=== PATIENT | male | born 1950 | race Caucasian/White ===

== ENCOUNTER 2023-08-12 11:29 | Emergency (ER) | payer OTHER, SELFPAY ==
--- NOTE | ~2023-08-12 | XR_ITS ---
XR ankle LT min 3V 08/12/2023 11:54 Indication: Left ankle pain after fall Procedure: 4 views left ankle Comparison: No prior studies for comparison. Findings: There is a minimally displaced oblique distal fibular fracture. Ankle mortise intact. There are loose bodies adjacent to the medial malleolus, likely related to remote trauma. Prominent degene rative calcaneal enthesophytes. No foreign bodies. 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 Impression: 1: Oblique minimally displaced distal fibular fracture. Reviewed, dictated and finalized at location A. ION LEADER AND MACHINE SETTER Impression: 1: Oblique minimally displaced distal fibular fracture.
--- NOTE | ~2023-08-12 | XR_ITS ---
XR knee RT 3V 08/12/2023 11:54 Indication: Right knee pain after fall Procedure: 4 views right knee Comparison: No prior studies for comparison. Findings: Mild polyarticular osteoarthritis. No joint effusion. No acute fracture or traumatic malali gnment. No significant soft tissue abnormality. No foreign bodies. Impression: 1: No acute fracture. Reviewed, dictated and finalized at location A. RD CHANGER Impression: 1: No acute fracture.
--- NOTE | 2023-08-12 11:33 | ECG_ITS ---
Measurements Intervals [place] Rate: 67 P: -24 GA: 305 QRS: -18 QRSD: 158 T: -16 QT: 417 QTc: 440 Interpretive Statements SINUS RHYTHM WITH FIRST DEGREE AV BLOCK RIGHT BUNDLE BRANCH BLOCK [120+ ms QRS DURATION, UPRIGHT V1, 40+ ms S IN I/aVL/V4/V5/V6] ABNORMAL ECG NO PREVIOUS ECG AVAILABLE FOR COMPARISON Electronically Signed On 08-12-2023 18:26:18 TOXICOLOGIST by Enrique Ngo M.D.
[2023-08-12 11:34] VITALS: BP 138/76; PULSE 73; RESP 20; TEMP 36.3; O2SAT 100
--- NOTE | 2023-08-12 11:35 | ED.GENADULT ---
HPI - General Adult General Chief complaint: Extremity Injury, Lower Stated complaint: fall - knee deformity History of Present Illness HPI narrative: 73-year-old male presenting to the emergency department for evaluation of right knee and left ankle pain after a fall. Patient states he was going down some stairs when his heel caught causing him to slide down the stairs. Patient states he fell down about 3 stairs and when he got to the bottom his legs went behind him and he felt a pop in his right knee. Patient called EMS due to pain in the right knee with deformity and pain in the left ankle. Patient denies striking his head denies any loss of consciousness. Upon arrival emergency department patient initially declined any medications for pain control patient is alert oriented and well-appearing. Patient patient is a type 2 diabetic history of hypertension high cholesterol Related Data Allergies Allergy/AdvReac Type Severity Reaction Status Date / Time No Known Allergies Allergy Verified 02/20/23 10:57 Review of Systems Review of Systems: All systems reviewed & are unremarkable except as noted in HPI and below PMFSH Surgical History Surgical History History of tonsillectomy Family History Family History Grandparent Acute myocardial infarction Hypertension Father Hypertension Mother Hypertension Other Diabetes mellitus Social History Social History Smoking status: Never smoker Second hand tobacco smoke exposure: No Alcohol intake: current Drinks per week: 6 Substance use: never Substance use type: does not use Living arrangements: with family Occupation/Education: retired Gender identity (if verbalized by the patient): Male Sexual Orientation (if Verbalized by the Patient): Straight or Heterosexual Spiritual care concerns: No Agree to blood products: Yes Exam Narrative: APPEARANCE: Well appearing, no pain, no distress, well-nourished. HEAD: normocephalic, atraumatic. EYES: PERRLA/EOMI, conjunctivae clear. NOSE: Normal no drainage EARS:TMS clear with good light reflex. THROAT: Pharynx clear, no exudate. NECK: Supple. No adenopathy, no masses. RESPIRATORY: Airway patent, respirations nonlabored. Clear to auscultation bilaterally, no rales, rhonchi, wheezing. CARDIOVASCULAR: Regular rate and rhythm without murmurs rubs or gallops. ABDOMINAL: Soft, nontender, nondistended, normal bowel sounds MUSCULOSKELETAL: Deformity of right knee, patient is neurovascularly intact with strong pulses on the right. Tenderness to left lateral ankle. NEURO: Alert. Cranial nerves II through XII intact. Good gait. Good coordination SKIN: Warm, dry. Normal Color Course Course Emergency Course: Patient has a suspected quadriceps tendon rupture on the right and a fibular fracture on the left. Patient was able to ambulate with a walker and patient strongly prefers to be discharged home. Patient will have close follow-up with Orthopedics. Vital Signs Vital signs: Vital Signs Temperature 97.4 F L 08/12/23 11:34 Pulse Rate 73 08/12/23 11:34 Respiratory Rate 20 08/12/23 11:34 Blood Pressure 138/76 08/12/23 11:34 Pulse Oximetry 100 08/12/23 11:34 Oxygen Delivery Room Air 08/12/23 11:34 Temperature 97.4 F L 08/12/23 11:34 Pulse Rate 69 08/12/23 12:44 Respiratory Rate 13 08/12/23 12:44 Blood Pressure 105/59 L 08/12/23 12:44 Pulse Oximetry 97 08/12/23 12:44 Oxygen Delivery Room Air 08/12/23 11:34 Medical Decision Making MDM Narrative Medical decision making narrative: 71-year-old male presents emergency department for evaluation for right knee and left ankle pain. Patient does have a left-sided distal fibular fracture and a suspected quadriceps tendon rupture on the right. Patient was plac
[2023-08-12 12:02] LABS: Basophils Percent Auto 0.3 % (0.2-1.2); Eosinophils Absolute Auto 0.2 K/mm3 (0-0.3); Eosinophils Percent Auto 3.4 % (0-4.4); Hematocrit 42.1 % (42.0-52.0); Hemoglobin 13.8 g/dL (14.0-18.0); Immature Granulocyte Absolute 0.02 K/mm3 (0.00-0.031); Immature Granulocyte Percent A 0.3 % (0-0.5); Lymphocytes Absolute Auto 0.91 K/mm3 (0.9-3.2); Lymphocytes Percent Auto 13.3 % (18.3-44.2); Mean Corpuscular HGB Conc 32.8 g/dl (32-36); Mean Corpuscular Hemoglobin 27.8 pg (26-34); Mean Corpuscular Volume 84.9 fl (80-100); Mean Platelet Volume 9.4 fl (7.4-10.4); Monocytes Absolute Auto 0.5 K/mm3 (0.1-0.6); Monocytes Percent Auto 7.2 % (2.6-8.5); Neutrophils Absolute Auto 5.2 K/mm3 (1.3-6.7); Neutrophils Percent Auto 75.5 % (45.5-73.1); Platelet Count Result 229 k/mm3 (150-375); Red Blood Count 4.96 M/mm3 (4.6-6.20); Red Cell Distribution Width 11.9 % (11.5-14.5); White Blood Count 6.8 K/mm3 (4.5-10.0)
[2023-08-12 12:13] LABS: Alanine Aminotransferase 26 U/L (6-50); Albumin Level 4.4 g/dL (3.5-5.1); Alkaline Phosphatase 62 U/L (38-126); Anion Gap 11 mmol/L (8-16); Aspartate Amino Transferase 27 U/L (17-59); Bilirubin,Total 0.9 mg/dL (0.2-1.3); Blood Urea Nitrogen 20 mg/dL (9-20); Calcium 9.5 mg/dL (8.4-10.2); Carbon Dioxide 26 mmol/L (22-30); Chloride 96 mmol/L (98-107); Estimated CRCL calculation 57 ml/min; Estimated Glomerular Filt Rate 54; Glucose 142 mg/dL (65-110); Potassium 4.2 mmol/L (3.4-5.0); Sodium 133 mmol/L (137-145)
[2023-08-12 12:19] LABS: INR 0.9; Prothrombin Time 12.6 Seconds (11.1-14.7)
[2023-08-12 12:20] LABS: Partial Thromboplastin Time 27.2 SECONDS (22.3-36.8)
[2023-08-12 12:44] VITALS: BP 105/59; PULSE 69; RESP 13; O2SAT 97
== END 2023-08-12 13:53 | disposition home or self-care (01) ==
PROVIDERS: Emergency Provider Emergency Medicine; PCP Family Medicine Adolescent Medicine
DX: S82.832A Other fracture of upper and lower end of left fibula, initial encounter for closed fracture (principal); S76.111A Strain of right quadriceps muscle, fascia and tendon, initial encounter; E11.9 Type 2 diabetes mellitus without complications; I10 Essential (primary) hypertension; E78.00 Pure hypercholesterolemia, unspecified; Z79.84 Long term (current) use of oral hypoglycemic drugs; Z79.82 Long term (current) use of aspirin; I45.10 Unspecified right bundle-branch block; I44.0 Atrioventricular block, first degree; W10.9XXA Fall (on) (from) unspecified stairs and steps, initial encounter
CPT/HCPCS: 29515; 36415; 73562; 73610; 80053; 85025; 85610; 85730; 86850; 86900; 86901; 93005; 99284

== ENCOUNTER 2023-08-13 13:28 | Outpatient (CLI) | payer OTHER, SELFPAY ==
--- NOTE | ~2023-08-13 | XR_ITS ---
EXAMINATION: XR orbit foreign body DATE: 08/13/2023 13:54 INDICATION: Foreign body. TECHNIQUE: 2 views of the orbits were obtained. COMPARISON: None. FINDINGS: There is leftward deviation the nasal septum. No fracture. There is a 4 mm spherical radiop aque foreign body in the soft tissues lateral to the right orbit. IMPRESSION: 1. 4 mm spherical radiopaque foreign body in the soft tissues of the right bahai region. Reviewed, dictated and finalized at location A. SPECIALIST IMPRESSION: 1. 4 mm spherical radiopaque foreign body in the soft tissues of the right temp le region.
--- NOTE | ~2023-08-13 | MR_ITS ---
EXAMINATION: MR knee RT wo con DATE: 08/13/2023 14:27 INDICATION: Strain of right quadriceps muscle. Right knee pain. TECHNIQUE: Magnetic resonance imaging (MRI) of the right knee was performed without intravenous contr ast. Sequences included axial PD-weighted FS FSE, coronal PD-weighted FSE and PD-weighted FS FSE, sag ittal PD-weighted FSE, and sagittal T2-weighted FS FSE. COMPARISON: Right knee radiographs 08/12/2023 FINDINGS: Medial compartment: There is a complex tear of medial meniscus. There is shallow partial-thickness cartilage loss of tibi al condyle and femoral condyle. Marginal osteophytes are noted. Lateral compartment: There is a complex tear involving body and posterior horn of lateral meniscus. There is shallow parti al-thickness cartilage loss of tibial condyle and femoral condyle. There is deep partial thickness ca rtilage loss of tibial condyle involving the central articular surface. Osteophytes are noted. Patellofemoral compartment: There is shallow partial-thickness cartilage loss of patellar lateral facet. There is deep partial th ickness fissuring of patellar median ridge. There is cartilage surface irregularity of trochlea. Oste ophytes are noted. Ligaments and tendons: Anterior and posterior cruciate ligaments are normal. Medial collateral ligament is normal. There denisse nges of prior sprain of fibular collateral ligament characterized by increased signal intensity proxi yessi. There is mild patellar tendinopathy. There is a complete tear of quadriceps tendon. Fluid: There is a small knee joint effusion. There is mild prepatellar and superficial infrapatellar bursiti s. IMPRESSION: 1. Complete tear of quadriceps tendon. 2. Moderate chondrosis of lateral and patellofemoral compartments and mild chondrosis of medial lois rtment. 3. Tears of medial and lateral menisci. 4. Small knee joint effusion. Reviewed, dictated and finalized at location A. [employer]OR MEDICARE SALES IMPRESSION: 1. Complete tear of quadriceps tendon. 2. Moderate chondrosis of lateral and patellofemoral compartments and mild vlad drosis of medial compartment. 3. Tears of medial and lateral menisci. 4. Small knee joint effusion.
== END 2023-08-13 13:29 ==
LOC: GOSHIMG 13:31
PROVIDERS: PCP Family Medicine Adolescent Medicine; Visit Provider Orthopaedic Surgery
DX: M25.461 Effusion, right knee (principal); S76.111D Strain of right quadriceps muscle, fascia and tendon, subsequent encounter; S83.241D Other tear of medial meniscus, current injury, right knee, subsequent encounter; S83.281D Other tear of lateral meniscus, current injury, right knee, subsequent encounter; X58.XXXD Exposure to other specified factors, subsequent encounter; T15.91XA Foreign body on external eye, part unspecified, right eye, initial encounter
CPT/HCPCS: 70030; 73721

== ENCOUNTER 2023-08-14 01:52 | Day surgery (SDC) | payer OTHER, SELFPAY ==
[2023-08-13 12:41] VITALS: BMI 32.5
--- NOTE | 2023-08-13 12:45 | PC.NURSE ---
Report to the Outpatient Waiting Room, entrance under the green pavilion located off [facility], at time __1000 on date __08/14/23 . Planned Procedure Time: ___1200 . Time changes happen often and if your time is changed the preop area will call you the afternoon before. - You and your visitor will be asked to self-screen and do not enter if you have any COVID symptoms. - A mask is optional within the hospital at this time. Patients may have clear liquids (water, carbonated beverages, clear teas, apple juice) until 3 hours prior to surgery (0900 AM) with a maximum of 20 ounces. - No food from midnight until time of surgery - Infants may have breast milk until 4 hours before surgery, formula 6 hours prior to surgery. - Children will be allowed to drink immediately following surgery. If applicable, please bring a bottle or sippy cup to assist with drinking. Juice, water, soda, and popsicles are readily available. For infants on formula, please bring formula the day of surgery. Pacifiers are allowed. Take the following medications with a SIP of water the morning of surgery: ___AMLODIPINE, METOPROLOL & PAIN PILL IF NEEDED DO NOT STOP ANY OF YOUR OTHER PRESCRIPTION MEDICATIONS PRIOR TO SURGERY ?EXCEPT THE FOLLOWING Medications to discontinue per physician Date to take last dose Please no make-up, nail vietnamese, hairspray, perfume, deodorant, or body powder the day of surgery. No jewelry (including any body piercings) or valuables the day of surgery, leave them at home. Please take a shower or bath the night before, or the morning of, surgery with an antibacterial soap. Wear comfortable, loose fitting clothing. Children are encouraged to wear pajamas. - Jewelry must be removed prior to entering the operating room. Rings and piercings that are not removed may be cut off. - The hospital will not accept responsibility for valuables. - Please leave all valuables, including medications, at home the day of surgery. If you are going home after surgery, a licensed taxicab driver must drive you home. - NO public transportation without another adult if you receive anesthesia. - We recommend that an adult stay with you for 24 hours following discharge. - We also recommend that you do not drive, make important decision, drink alcoholic beverages, or take any drugs that were not prescribed by your health care provider for at least 24 hours after your discharge time. For Pediatric surgeries, we recommend two adults accompany the child home. Follow any additional instructions given to you from your surgeon. If you or anyone in your household have experienced Covid symptoms in the past week, please notify your surgeon or the nurse liaison at the phone number below for possible testing. Telephone instructions given to PT and asked if any additional questions and then verbalized understanding. Patient advised to call surgeon office or pre surgery nurse liaison [phone] if any additional questions.
[2023-08-14] VITALS (12 sets, daily range): BP systolic 104–133; BP diastolic 49–68; PULSE 74–87; RESP 14–18; TEMP 36.2–36.8; O2SAT 94–100; BMI 30.3
--- NOTE | ~2023-08-14 | XR_ITS ---
EXAMINATION: XR fluoroscopy <1hr DATE: 08/14/2023 14:19 INDICATION: Left fibular fracture. TECHNIQUE: 3 intraoperative fluoroscopic views of the left ankle were obtained. I was not present. Fl uoroscopy exposure time was 18 seconds. COMPARISON: Left ankle radiographs 08/12/2023 FINDINGS: There is a spiral fracture of distal fibula. The distal fracture fragment demonstrates 2 mm posterolateral displacement. There is heterotopic ossification distal to medial malleolus. IMPRESSION: 1. Spiral fracture of distal fibula. Reviewed, dictated and finalized at location A. YCOMB DECAPPER
--- NOTE | 2023-08-14 07:31 | WPDHPUPDATE1 ---
History and Physical Update Update Date/Time: 08/14/23 07:31 History and Physical has been reviewed, including an updated exam of the patient. There are NO changes in the patient's condition. Risks, benefits, and alternatives have been discussed and questions answered. Patient agrees to proceed with procedure.
[2023-08-14] MEDS: ACETAMINOPHEN 500 MG TABLET 1000 MG PO ×2 (10:50→19:40)
[2023-08-14] MEDS: LACTATED RINGERS 1,000 ML 30 ML IV CONT ×2 (11:00→14:26)
[2023-08-14 11:08] LABS: Glucose Point of Care 165 mg/dl (65-105)
[2023-08-14] MEDS: KETOROLAC 15 MG/ML VIAL (*BKC) IV PUSH (11:08)
--- NOTE | 2023-08-14 11:35 | WPDANESEPPF ---
Anes - Initial Pre Proc Eval Procedure: Operation Date: 08/14/23 12:00 Proposed Procedures p Right Quadriceps Tendon Repair, - Juan Abel MD s Right Knee Arthroscopy, Partial Lateral and Medial Meniscectomy - Juan Abel MD Date/Time: 08/14/23 11:35 Surgeon: Juan Abel MD Pre Op Diagnosis: Right Quadricep Rupture, Patient Data Age: 73 Gender: M Height: 1.79 m Weight: 97.3 kg Last Vital Signs Temp 36.8 C 08/14/23 11:11 Pulse 80 08/14/23 11:11 Resp 16 08/14/23 11:11 BP 121/65 08/14/23 11:11 Pulse Ox 94 08/14/23 11:11 O2 Del Method Room Air 08/14/23 11:11 Allergies Allergy/AdvReac Type Severity Reaction Status Date / Time No Known Allergies Allergy Verified 08/14/23 10:32 Home Medications Medication Instructions Recorded Confirmed Type amlodipine 10 mg tablet See Rx Instructions .Route 02/17/23 08/14/23 Rx .COMPLEX #90 tabs indapamide 2.5 mg tablet 2.5 mg PO DAILY #90 tabs 03/14/23 08/14/23 Rx metformin 500 mg tablet 2,000 mg PO DAILY #360 tabs 04/04/23 08/14/23 Rx valsartan 320 mg tablet See Rx Instructions .Route 05/10/23 08/14/23 Rx .COMPLEX #90 tabs atorvastatin 20 mg tablet See Rx Instructions .Route 05/23/23 08/14/23 Rx .COMPLEX #90 tabs metoprolol succinate 100 mg See Rx Instructions .Route 05/23/23 08/14/23 Rx tablet,extended release 24 hr .COMPLEX #180 tabs linagliptin 5 mg tablet (Tradjenta) See Rx Instructions .Route 06/04/23 08/14/23 Rx .COMPLEX #90 tabs blood sugar diagnostic (Contour #50 ea 07/15/23 08/13/23 Rx Next Test Strips) lancets 30 gauge #100 ea 08/06/23 08/13/23 Rx hydrocodone 5 mg-acetaminophen 325 1 tablet PO Q8H PRN pain #20 tabs 08/12/23 08/13/23 Rx mg tablet walker #1 ea 08/12/23 08/13/23 Rx aspirin 81 mg tablet,delayed 81 mg PO BID 14 days #28 tabs 08/14/23 Rx release oxycodone-acetaminophen 5 mg-325 1 - 2 tablet PO Q4-6H PRN pain #30 08/14/23 Rx mg tablet tabs Laboratory Tests 08/14/23 11:02 POC Capillary Glucose 165 H mg/dl (65-105) Patient hx anesthesia problems: none Family hx anesthesia problems: none Results Review: All pre-operative results and documents have been reviewed as part of the pre-operative evaluation. [facility] Surgical History Surgical History History of tonsillectomy Family History Family History Grandparent Acute myocardial infarction Hypertension Father Hypertension Mother Hypertension Other Diabetes mellitus Social History Social History Smoking status: Never smoker Second hand tobacco smoke exposure: No Alcohol intake: current Drinks per week: 3 Substance use: never Substance use type: does not use Living arrangements: with family Occupation/Education: retired Gender identity (if verbalized by the patient): Male Sexual Orientation (if Verbalized by the Patient): Straight or Heterosexual Spiritual care concerns: No Agree to blood products: Yes Anes - Eval Final PreProcedure Day of Procedure 08/14/23 11:35 Patient weight: obese Heart: regular rate and rhythm Lungs: clear to auscultation Airway: Mallampati scale class II Neurological: alert and oriented Last oral intake: >/= 8 hours ASA classification: III Emergent: no Anesthetic plan: proceed Anesthesia type and monitoring: general LMA and standard monitoring Results Review: All pre-operative results and documents have been reviewed as part of the pre-operative evaluation. Informed Consent: The patient's anesthetic plan and its attendant risks and benefits were discussed with the patient/family/POA. Questions were solicited and answers provided to the satisfaction of the patient/family/POA.
[2023-08-14] MEDS: ceFAZolin 2 GM/D5W 50 ML 2 GM/50 ML BAG IVPB ×2 (11:58→19:42)
[2023-08-14] MEDS: BUPIVACAINE/EPINEPHRINE 0.5% 30 ML VIAL INFILTRATE (12:37)
--- NOTE | 2023-08-14 14:49 | W.PM.PROC2 ---
Procedure Note - Detailed Date of Procedure 08/14/23 Pre-op Diagnosis Right knee quadriceps rupture 2. Medial and lateral meniscus tears 3. Left ankle lateral malleolus fracture Post-op Diagnosis Same Procedure Performed 1. Quadriceps tendon repair 2. Arthroscopic partial medial and lateral meniscectomies 3. Examination under fluoroscopy left ankle with placement of short leg cast Surgeon Juan Abel MD [employer] Dottie Cervantes PA-C Anesthesia General Indications Acute quad tendon rupture. Acute non displaced lateral malleolus fracture. Findings Complete quad tendon rupture repaired anatomically with 2 suture anchors and repair of medial vastus medialis split. Degenerative meniscus tears, with acute component, debrided. Fluoroscopic evaluation of the left ankle demonstrated stability of the fracture and ankle mortise. Description of Procedure Preoperative antibiotics given. General anesthetic administered. The right leg prepped and draped in usual sterile fashion. Arthroscopy was performed supine on the table with standard inferomedial inferolateral arthroscopic portals. Extensive degenerative tearing of the medial meniscus encountered with component that appeared to be acute. Was acute strain of the ACL. Lateral meniscus was debrided as well with degenerative tearing along most of the inner margin. There was grade 2/Iii chondromalacia throughout medial and lateral compartments. Mild chondromalacia on the patella and trochlea. Attention was turned to the quad tendon. Midline incision was created. Large tendon defect was confirmed. The attachment on the quadriceps was lightly cleared. Two drill holes were created from proximal to distal at the insertion point. These drill holes were used to shuttle sutures through the tunnels. Small splits were created in the patella tendon. At this point the FiberTak anchors were pulled back from distal to proximal seating them on the distal patella cortex. A FiberTape with stitch was placed with Krackow sutures into the lateral and medial aspect of the quadriceps. These were looped into the anchor sutures and then the anchor sutures were tightened. This seated the quadriceps very nicely against the patella. The knee was cycled to 90? and small amount of gapping occurred. The sutures were then read tightened several times which confirmed very nice approximation of the tendon on bone. The sutures were passed through a horizontal mattress in the distal more superficial tissues which provided a nice anatomic zoroastrian of tendon and. Tendinous material. The medial retinaculum was reinforced with several fiber tapes and 1. Vicryl suture into the vastus medialis. A few 1. Vicryl were placed in the lateral retinaculum as well. The knee was copiously irrigated. The wound was closed with interrupted 1. Vicryl followed by running 2-0 Quill and 3-0 Quill. Steri-Strips placed on the skin. Mepilex dressing. The arthroscopic portals were closed with interrupted 4-0 Monocryl suture. Sterile dressing with knee immobilizer was placed. Slight compression. Attention was turned to the left ankle which was examined under fluoroscopy. There was concern that the ankle appeared to be externally rotated. This turned out to be due to external tibial torsion. The ankle mortise was confirmed to be stable and the fracture showed new displacement. The displacement remained very minimal. Due to the contralateral knee surgery it was elected to place a well fitted and molded walking cast. The patient was extubated and brought to the recovery room in stable condition. There were no complications. Physician recruitment assistant, Dottie Cervantes PA-C, required for surgery; including patient positioning, draping, tissue retraction, assist anchor deployment, wound closure, short leg casting, and dressing placement. Implants Knee FiberTak suture from [employer] x2. Estimated Blood Loss 20 Tourniquet Time Total Tourniquet Time:
[2023-08-14 15:24] LABS: Glucose Point of Care 142 mg/dl (65-105)
--- NOTE | 2023-08-14 15:25 | SUR.PHASEI ---
RN called Dr. Abel's office to clarify weight bearing status again since both lower extremities were operated on.
--- NOTE | 2023-08-14 16:06 | SUR.PHASEII ---
PHYSICAL THERAPY HERE TO WORK WITH PATIENT.
--- NOTE | 2023-08-14 16:54 | SUR.PHASEII ---
1174 PHYSICAL THERAPY DID NOT CLEAR PATIENT TO GO HOME; MESSAGE RELAYED TO DR. ARIZA; LAMAR HARRIS CALLED TO PLACE ADMISSION ORDERS; EMPLOYMENT DIRECTOR NOTIFIED; AWAITING BED ASSIGNMENT. PATIENT AND UNDERSTAND AND ARE IN AGREEMENT WITH PLAN.
--- NOTE | 2023-08-14 17:00 | SUR.PHASEII ---
DINNER REQUEST SUBMITTED TO DIETARY.
--- NOTE | 2023-08-14 17:33 | SUR.PHASEII ---
PATIENT EATING DINNER WITH GOOD APPETITE.
--- NOTE | 2023-08-14 18:15 | ADMGEN ---
This patient, Bryson Frias, was admitted to Medical Room 345-. Patient/family oriented to hospital policies and general routines including ID bracelet, bed and alarms, visiting hours, pain management, procedures, bathroom and other care routines, personal items, smoking policy, room service/diet, and visiting hours. Information on how to activate the Rapid Response Team has been discussed. Patient/Family are encouraged to report perceived risks to care and to ask questions if they do not understand what they are told or what they should do.
[2023-08-14 19:13] LABS: Basophils Percent Auto 0.4 % (0.2-1.2); Eosinophils Absolute Auto 0.3 K/mm3 (0-0.3); Eosinophils Percent Auto 3.5 % (0-4.4); Hematocrit 35.5 % (42.0-52.0); Hemoglobin 11.9 g/dL (14.0-18.0); Immature Granulocyte Absolute 0.02 K/mm3 (0.00-0.031); Immature Granulocyte Percent A 0.2 % (0-0.5); Lymphocytes Absolute Auto 1.47 K/mm3 (0.9-3.2); Lymphocytes Percent Auto 17.6 % (18.3-44.2); Mean Corpuscular HGB Conc 33.5 g/dl (32-36); Mean Corpuscular Hemoglobin 28.1 pg (26-34); Mean Corpuscular Volume 83.9 fl (80-100); Mean Platelet Volume 9.5 fl (7.4-10.4); Monocytes Absolute Auto 0.7 K/mm3 (0.1-0.6); Monocytes Percent Auto 8.9 % (2.6-8.5); Neutrophils Absolute Auto 5.8 K/mm3 (1.3-6.7); Neutrophils Percent Auto 69.4 % (45.5-73.1); Platelet Count Result 199 k/mm3 (150-375); Red Blood Count 4.23 M/mm3 (4.6-6.20); White Blood Count 8.4 K/mm3 (4.5-10.0)
[2023-08-14 19:23] LABS: Anion Gap 5 mmol/L (8-16); Blood Urea Nitrogen 15 mg/dL (9-20); Calcium 8.5 mg/dL (8.4-10.2); Carbon Dioxide 30 mmol/L (22-30); Chloride 97 mmol/L (98-107); Estimated CRCL calculation 70 ml/min; Estimated Glomerular Filt Rate > 60; Glucose 214 mg/dL (65-110); Potassium 3.2 mmol/L (3.4-5.0); Sodium 132 mmol/L (137-145)
[2023-08-14] MEDS: ASPIRIN 81 MG ENTERIC TABLET PO (19:40)
[2023-08-14] MEDS: SENNA/DOCUSATE SODIUM TABLET 2 TAB PO (19:40)
--- NOTE | 2023-08-14 20:00 | PHAR ---
PT'S HOME MEDS TRADJENTA 5 MG TAB AND VALSARTAN 320 MG TAB VERIFIED BY PHARMACY
[2023-08-14] MEDS: oxyCODONE HCL (*CRX) 5 MG TAB IR PO (20:43)
[2023-08-15] VITALS: BP 105/62; PULSE 72; RESP 14; TEMP 36.3; O2SAT 94
[2023-08-15] MEDS: ACETAMINOPHEN 500 MG TABLET 1000 MG PO ×2 (01:41→07:45)
[2023-08-15] MEDS: oxyCODONE HCL (*CRX) 5 MG TAB IR PO (01:41)
[2023-08-15] MEDS: ceFAZolin 2 GM/D5W 50 ML 2 GM/50 ML BAG IVPB (03:55)
[2023-08-15 04:06] LABS: Glucose Point of Care 232 mg/dl (65-105)
[2023-08-15] MEDS: oxyCODONE HCL (*CRX) 5 MG TAB IR 10 MG PO ×2 (05:47→09:57)
[2023-08-15 06:00] VITALS: BP 110/60; PULSE 64; RESP 18; TEMP 36.2; O2SAT 95
--- NOTE | 2023-08-15 08:23 | PCOTNOTE ---
The patient treatment was not able to be completed. Patient was working with PT. Will plan to continue treatment per plan of care.
--- NOTE | 2023-08-15 08:33 | PM.DS ---
DS: Admitting Diagnosis Discharge Date 08/15/23 Admitting Diagnosis Distal fibular fracture. Quad tendon rupture. DS: Discharge Diagnosis Discharge Diagnosis (1) Rupture of right quadriceps tendon: Qualifiers: Encounter type: initial encounter Qualified Code(s): S76.111A - Strain of right quadriceps muscle, fascia and tendon, initial encounter Code(s): S76.111A - Strain of right quadriceps muscle, fascia and tendon, initial encounter Status: Acute (2) Acute lateral meniscus tear of right knee: Qualifiers: Encounter type: initial encounter Qualified Code(s): S83.281A - Other tear of lateral meniscus, current injury, right knee, initial encounter Code(s): S83.281A - Other tear of lateral meniscus, current injury, right knee, initial encounter Status: Acute (3) Acute medial meniscus tear of right knee: Qualifiers: Encounter type: initial encounter Qualified Code(s): S83.241A - Other tear of medial meniscus, current injury, right knee, initial encounter Code(s): S83.241A - Other tear of medial meniscus, current injury, right knee, initial encounter Status: Acute (4) Fibula fracture: Code(s): S82.409A - Unspecified fracture of shaft of unspecified fibula, initial encounter for closed fracture Status: Inactive Plan Postop day 1: Right quad tendon repair, Right arthroscopic partial medial and lateral meniscectomy. Also left distal fibula fracture. Patient tolerated procedure well. He was having trouble with ambulating. Unsafe for him to do stairs yesterday. PT recommended further therapy before returning home. Pain manageable with pain medication. No numbness or tingling. He is doing much better with therapy today. We had a lengthy discussion regarding postoperative wound care, limitations, expectations, and exercises. Patient shows good understanding. DVT prophylaxis: 81 mg baby aspirin b.i.d. for 14 days. Pain medication: Percocet. DS: Summary Hospital Course Reason for hospitalization: Total knee arthroplasty Hospital Course: Patient tolerated procedure well. Has had initial PT/OT. No complications. Pain well managed. Status at Discharge Functional status at discharge: uses cane/walker Overall status at discharge: patient is progressing back to baseline Time Spent with Patient Time attestation: Total time spent providing and/or coordinating discharge services: Exam Narrative: Normal weight Male. Resting comfortably in chair. No acute distress. A&O x3. Wearing carlos wrap on the right leg. Dressing intact with no drainage at the central incision. Small amount of expected bloody drainage at the portal sites. Moderate swelling. Small area of ecchymosis. No erythema. No hematoma. Wearing immobilizer on the right. Cast intact on the left. Patient can wiggle toes. Calf nontender on the right. Neurologic status intact. No varicosities. Distal pulses palpable. DS: Data Data Completed and Pending Labs on day of discharge: Labs from last 24 hours 08/14/23 08/14/23 08/14/23 19:56 19:03 15:21 WBC 8.4 RBC 4.23 L Hgb 11.9 L Hct 35.5 L MCV 83.9 MCH 28.1 MCHC 33.5 RDW 12.0 Plt Count 199 MPV 9.5 Immature Gran % (Auto) 0.2 Neut % (Auto) 69.4 Lymph % (Auto) 17.6 L Delta % (Auto) 8.9 H Eos % (Auto) 3.5 Baso % (Auto) 0.4 Lymph # (Auto) 1.47 Delta # (Auto) 0.7 H Eos # (Auto) 0.3 Baso # (Auto) 0.0 Abs Immat Gran (auto) 0.02 Absolute Neuts (auto) 5.8 Absolute Nucleated RBC 0.0 Nucleated RBC % 0.0 Sodium 132 L Potassium 3.2 L Chloride 97 L Carbon Dioxide 30 Anion Gap 5 L BUN 15 D Creatinine 1.00 Estim Creat Clear Calc 70 Estimated GFR > 60 Glucose 214 H POC Capillary Glucose 232 H 142 H Calcium 8.5 08/14/23 11:02 WBC RBC Hgb Hct MCV MCH MCHC RDW Plt Count MPV Immature Gran % (Auto
[2023-08-15 08:40] VITALS: PULSE 90
[2023-08-15] MEDS: ATORVASTATIN 20 MG TABLET PO (08:40)
[2023-08-15] MEDS: METOPROLOL SUCCINATE EXT REL 100 MG TABCR 200 MG PO (08:40)
[2023-08-15] MEDS: amLODIPine BESYLATE 5 MG TABLET 10 MG PO (08:40)
[2023-08-15] MEDS: metFORMIN HCL 500 MG TABLET 2000 MG PO (08:40)
[2023-08-15] MEDS: SENNA/DOCUSATE SODIUM TABLET 2 TAB PO (08:40)
[2023-08-15] MEDS: polyethylene glycoL 3350 17 GM POWD.PACK PO (08:40)
[2023-08-15] MEDS: ASPIRIN 81 MG ENTERIC TABLET PO (08:40)
[2023-08-15] MEDS: CYCLOBENZAPRINE HCL 10 MG TABLET PO (08:41)
[2023-08-15] MEDS: INDAPAMIDE 2.5 MG TABLET PO (08:41)
[2023-08-15 08:44] VITALS: O2SAT 95
== END 2023-08-15 12:35 | disposition home or self-care (01) ==
LOC: ANHSURGERY 16:18 → ANH3MED 18:19
PROVIDERS: Physician Assistant Surgical; PCP Family Medicine Adolescent Medicine; Visit Provider Orthopaedic Surgery
PROC: (CPT 29880; principal; 2023-08-14 12:00)
PROC: (CPT 29870; 2023-08-14 12:00)
DX: S76.111A Strain of right quadriceps muscle, fascia and tendon, initial encounter (principal); S83.241A Other tear of medial meniscus, current injury, right knee, initial encounter; S83.281A Other tear of lateral meniscus, current injury, right knee, initial encounter; S82.65XA Nondisplaced fracture of lateral malleolus of left fibula, initial encounter for closed fracture; W10.9XXA Fall (on) (from) unspecified stairs and steps, initial encounter; M22.41 Chondromalacia patellae, right knee; E11.9 Type 2 diabetes mellitus without complications; I10 Essential (primary) hypertension; E78.00 Pure hypercholesterolemia, unspecified
CPT/HCPCS: 29880; 27385; 29425; 36415; 76000; 80048; 82948; 85025; 97110; 97116; 97161; 97165; 97530; 97535; 97550; A9270; J0690; J1885; J2250; J2405; J2704; J3010; J7120; L1830

== ENCOUNTER 2023-09-25 13:24 | Outpatient (CLI) | payer OTHER, SELFPAY ==
--- NOTE | ~2023-09-25 | XR_ITS ---
Left ankle Technique: AP, oblique, and lateral views were obtained. Clinical History: Fracture COMPARISON: 09/12/2023 Findings: Oblique fracture the distal fibula is similar to prior exam. Chronic avulsion fracture the medial malleolus unchanged. Osseous alignment is unchanged. Ankle mortise and other visualized joint spaces are preserved. Soft tissues are otherwise unremarkable. Impression: Stable oblique fracture of the distal fibula. Reviewed, dictated and finalized at location M. Impression: Stable oblique fracture of the distal fibula.
== END 2023-09-25 13:25 | disposition home or self-care (01) ==
LOC: ANHIMG 13:27
PROVIDERS: PCP Family Medicine Adolescent Medicine; Visit Provider Physician Assistant Surgical
DX: S82.832A Other fracture of upper and lower end of left fibula, initial encounter for closed fracture (principal)
CPT/HCPCS: 73610

== ENCOUNTER 2023-10-29 09:00 | Outpatient (RCR) | payer OTHER, SELFPAY ==
--- NOTE | 2023-08-29 10:04 | PTOPEVAL1 ---
Assessment and note entered by Brennan Perdomo Evaluation Information Assessment Status Evaluation Diagnosis s/p right quad tendon repair, left ankle fracture Onset 08/14/23 Subjective Information Pt. reports that he fell down his steps on 08/12/23 . He reports he underwent surgery to repair is quad tendon on 08/14/23. He reports that he also fx the left ankle and is currently in a cast. He states that he can weight bear through the right l .e. with the immobilizer and is told to put very little weight through the left l.e. He states that he has been doing quad sets, glut sets and heel slides at home. He is currently limited to about 60 degrees knee flexion. He reports that he walks in the home with his ww. He reports his is helping with showering, grooming and bathing. He states that prior to injury he was very active. He did his own yardwork and gardening. He reports that his goal is to return to walking normal. Reported Pain Level Pain Score 8,2: Self Report Assessment PT Clinical Summary Pt. is a 73 year old male who enters the clinic post right quad tendon repair and left ankle fx. Pt. is currently FWB with immobilizer on the right and WBAT on the left. He is currently limited to approximately 60 degrees of knee flexion per his doctor. He currently presents with impaired gait, impaired l.e. strength, impaired right knee ROM and functional decline. Continued skilled PT is indicated in order to improve these areas to allow the pt. to be able to complete all IADL's without limitation and return to walking normal. Plan of Care Interventions Electrical Stimulation,Gait Training,Hot Pack/Cold Pack,Manual Therapy,Neuro Re-education,Patient/ Caregiver Educati,Therapeutic Activities, Therapeutic Exercise PT Services Indicated Yes Treatment Frequency and 2x/week x 10 visits Duration These treatments will address the objective and functional deficits as defined above. The patient will be advanced safely and appropriately in order for the patient to progress towards his/her prior level of function. Additional exercises will be introduced and as well as a comprehensive home exercise program upon discharge, if needed, ?to ensure carryover of functional gains achieved in the clinic. This treatment plan has been reviewed and agreement upon by the patient.
--- NOTE | 2023-08-29 10:05 | OPREHPOC ---
Outpatient Therapy Plan of Care This is a Multidisciplinary Plan of Care that may contain components documented by all disciplines (PT, OT, and ST.) PT Problem 1 PT Problem #1 Knowledge Deficit PT Goal 1 Goal Independent with a HEP addressing strength and mobility alevism Target Visit 2 PT Problem 2 PT Problem #2 Impaired Range of Motion PT Goal 1 Goal Pt. will be appropriate to advance ROM past 90 degrees knee fleixon Target Visit 8 PT Problem 3 PT Problem #3 Impaired Gait PT Goal 1 Goal Pt. will demonstrate step through pattern during ambulation and be able to discontinue use of the ww Target Visit 10 PT Problem 4 PT Problem #4 Impaired Functional Mobil PT Goal 1 Goal Pt. will be independent with all transfers. Target Visit 10
--- NOTE | 2023-09-17 08:07 | PCPTNOTE ---
Patient called to cancel on 09/17/23 due to his 's illness.
--- NOTE | 2023-10-01 12:00 | OPREHPOC ---
Outpatient Therapy Plan of Care This is a Multidisciplinary Plan of Care that may contain components documented by all disciplines (PT, OT, and ST.) PT Problem 1 PT Problem #1 Knowledge Deficit PT Goal 1 Goal Independent with a HEP addressing strength and mobility judaism Target Visit 2 Progress Met Comment 10-01-23 progress met goal PT Goal 2 Goal continue to progress HEP Target Visit 8 PT Problem 2 PT Problem #2 Impaired Range of Motion PT Goal 1 Goal Pt. will be appropriate to advance ROM past 90 degrees knee fleixon Target Visit 8 Progress Met Comment 10-01-23 progress met goal- has 110' flexion discontinue goal PT Problem 3 PT Problem #3 Impaired Gait PT Goal 1 Goal Pt. will demonstrate step through pattern during ambulation and be able to discontinue use of the ww Target Visit 10 Progress Met Comment 10-01-23 progress met goal PT Goal 2 Goal NEW GOAL: 1* 2 minute walking test distance without assistive device 350' 2* pt ambulate without knee brace and without assistive device in community 3* pt up/down 12 steps indep, without hand railing and alternating step pattern 4* Castano balance score of 56/56 Target Visit 8 PT Problem 4 PT Problem #4 Impaired Functional Mobil PT Goal 1 Goal Pt. will be independent with all transfers. Target Visit 10 Progress Met Comment 10-01-23 progress met goal discontinue PT Problem 5 PT Problem #5 Impaired Strength PT Goal 1 Goal 10-01-23 progress
--- NOTE | 2023-10-01 12:00 | PTOPPROG ---
Assessment and note entered by Riri Johnston, PT Evaluation Information Assessment Status Progress Diagnosis s/p right quad tendon repair, left ankle fracture Onset 08/14/23 Subjective Information feel like still need to work more on agility/ balance things and strength of legs; is using the cane some in the house; is doing all of his self care and in home tasks; Assessment PT Clinical Summary Damián has received a total of 10 PT sessions. He has improved in all areas since the eval: decrease pain, increased R knee ROM; increase strength of R and L LE, lesser assistive device, weaning off R knee brace and no longer wearing L ankle boot; no longer assists him with any tasks; Castano balance score of 50/56, 5 reps sit/ stand time of 28 seconds and 2 minute walking test with the cane 275'. The goals were achieved. Continue PT to further increase his LE strength, gait and balance skills, with progression of HEP and activity as tolerated. Plan of Care Interventions Electrical Stimulation,Gait Training,Hot Pack/Cold Pack,Manual Therapy,Neuro Re-education,Patient/ Caregiver Education,Therapeutic Activities, Therapeutic Exercise PT Services Indicated Yes Treatment Frequency and 2x/week x 8 visits Duration These treatments will address the objective and functional deficits as defined above. The patient will be advanced safely and appropriately in order for the patient to progress towards his/her prior level of function. Additional exercises will be introduced and as well as a comprehensive home exercise program upon discharge, if needed, ?to ensure carryover of functional gains achieved in the clinic. This treatment plan has been reviewed and agreement upon by the patient.
--- NOTE | 2023-10-29 09:48 | PTOPDC ---
Assessment and note entered by Riri Johnston, PT Discharge Information Assessment Status Discharge Diagnosis s/p right quad tendon repair, left ankle fracture Onset 08/14/23 Subjective Information doing everything at home; balance is still a little off; have not had any falls; been doing the exercises at home; has released me and do not have any restrictions; feel like ready to be finished with therapy. Reported Pain Level Pain Score Self Report Additional Pain Score Comments no pain in legs; have some muscle soreness from doing exercises and more activity, but NOT pain. during session, had pain in L knee usual arthritis pain --rest and ice ease it. grinding and crepitus under L patella with ROM of knee. Assessment PT Clinical Summary Damián has received a total of 17 PT sessions. Compared to the last progress report: no longer uses knee brace and cane is PRN use for distances or with L knee arthritis pain; 2 minute walking test distance increased from 275' with cane to 450 without device; good gait pattern; on stairs, can perform ascending with alternating step pattern and no hand railing; descending steps with one hand railing and alternating pattern, due to increase L knee pain; Castano balance score from 50 to 54/56--single leg standing time for R and L is 4-5 seconds; strength with 1 leg press: R 60# x 20 reps and L 70# x 6 reps--stop due to increase medial knee pain; indep with HEP. Damián has returned to his normal activities at home. The goals were achieved, except single leg standing tolerance and descending stairs without hand railing. Discharge PT, and he is to continue with his HEP and increase activity tolerance as able. Plan of Care PT Services Indicated No
== END 2023-10-29 10:20 | disposition home or self-care (01) ==
LOC: ANHPT 09:00
PROVIDERS: PCP Family Medicine Adolescent Medicine; Visit Provider Orthopaedic Surgery
DX: Z48.89 Encounter for other specified surgical aftercare (principal)
CPT/HCPCS: 97014; 97110; 97112; 97116; 97161; 97530; G0283